=== PATIENT | female | born 1980 | race Caucasian/White ===

== ENCOUNTER 2016-09-18 17:19 | Outpatient (CLI) | payer OTHER ==
--- NOTE | 2016-09-18 18:04 | DIAGNOSTIC IMAGING REPORT ---
PROCEDURE: XR HIP 2VW W W/O AP PELVIS-LT INDICATION: HIP PAIN TECHNIQUE: AP view of the pelvis and hips with lateral view of the left hip. COMPARISON: Pelvis and right hip 03/09/2014 FINDINGS: Left HIP: Normal mineralization. No fractures or dislocation. No suspicious calcifications. PELVIS: No fracture. Normal osseous alignment. No significant degenerative changes. Vascular calcifications in the left pelvis. Clips of tubal ligation in the upper pelvis. IMPRESSION: 1. No osseous abnormality. 2. Status post tubal ligation.
== END 2016-09-18 23:00 ==
LOC: XR SRH 17:19
DX: M25.552 Pain in left hip (principal)